=== PATIENT | female | born 1960 | race African-American/Black ===

== ENCOUNTER 2020-06-11 07:32 | Emergency (ER) | payer MEDICAID, OTHER ==
[~2020-06-11] VITALS: Ht 165.1 cm; Wt 63.5 kg
[2020-06-11 07:39] VITALS: BP 118/65
--- NOTE | 2020-06-11 07:43 | NUR ---
THE PATIENT IS IN ER BED #7 WITH C/O SINUS CONGESTION X 1 WEEK, STARTED COUGHING LAST NIGHT. THE PATIENT IS IN ROOM AIR AND DENIES SOB. RESPIRATION REGULAR AND UNLABORED. DENIES PAIN. WILL CONTINUE TO MONITOR THE PATIENT.
--- NOTE | 2020-06-11 07:44 | NUR ---
DR RAMIREZ AT THE BEDSIDE.
[2020-06-11] MEDS ORDERED: predniSONE 10 MG TABLET ONE (08:01)
[2020-06-11] MEDS ORDERED: AMOX-430 PO (08:01)
[2020-06-11] MEDS ORDERED: PRED50TA PO (08:01)
[2020-06-11] MEDS ORDERED: ALBU18HF2 INH (08:02)
[2020-06-11] MEDS ORDERED: predniSONE 20 MG TABLET ONE (08:02)
[2020-06-11] MEDS: predniSONE 50 MG TABLET PO ONE (08:13)
--- NOTE | 2020-06-11 08:24 | NUR ---
Patient discharged to home in stable condition. Written and verbal after care instructions given. Patient verbalizes understanding of instruction.
== END 2020-06-11 08:24 | disposition home or self-care (01) ==
LOC: ER 07:41
DX: J32.9 Chronic sinusitis, unspecified (principal); J22 Unspecified acute lower respiratory infection; J45.909 Unspecified asthma, uncomplicated; R00.0 Tachycardia, unspecified; Z79.899 Other long term (current) drug therapy
CPT/HCPCS: 71045; 99283; J7512 ×2

== ENCOUNTER 2020-06-24 21:58 | Emergency (ER) | payer MEDICAID ==
[~2020-06-24] VITALS: Ht 165.1 cm; Wt 63.5 kg
[~2020-06-24 21:58] MED LIST: ALBU18HF2 INH; AMOX-430 PO; PRED50TA PO
[2020-06-24 22:14] VITALS: BP 131/67
[2020-06-24] MEDS ORDERED: PROM118S5 PO (22:29)
[2020-06-24] MEDS ORDERED: ALBU18HF2 INH (22:29)
[2020-07-06] MEDS ORDERED: ALBU8.5H8 IH (02:15)
[2020-07-06] MEDS ORDERED: ALBU0.633 IH (02:15)
[2020-07-06] MEDS ORDERED: PRED20TA PO (02:15)
== END 2020-06-24 22:39 | disposition home or self-care (01) ==
LOC: ER 22:01
DX: J40 Bronchitis, not specified as acute or chronic (principal); R05 Cough; Z60.2 Problems related to living alone; Z79.899 Other long term (current) drug therapy

== ENCOUNTER 2020-08-30 22:16 | Emergency (ER) | payer MEDICAID ==
[~2020-08-30] VITALS: Ht 165.1 cm; Wt 63.5 kg
[~2020-08-30 22:16] MED LIST changes: +ALBU0.633 IH; +ALBU8.5H8 IH; +PRED20TA PO; +PROM118S5 PO
[2020-08-30] MEDS ORDERED: ALBUTEROL FS 2.5 MG/3 ML VIAL.NEB NEB ONE ×2 (22:30→23:00)
[2020-08-30] MEDS ORDERED: DEXAMETHASONE SOD PHOSPHATE 10 MG/ML VIAL IM ONE (22:30)
[2020-08-30] MEDS ORDERED: IPRATROPIUM NEB FS 0.5 MG/2.5 ML AMPUL.NEB NEB ONE ×2 (22:30→23:00)
[2020-08-30] MEDS ORDERED: DEXAMETHASONE SOD PHOSPHATE 10 MG/ML VIAL ONE (22:34)
[2020-08-30] MEDS ORDERED: IPRATROPIUM NEB FS 0.5 MG/2.5 ML AMPUL.NEB ONE ×2 (22:35→23:00)
[2020-08-30] MEDS ORDERED: ALBUTEROL FS 2.5 MG/3 ML VIAL.NEB ONE ×2 (22:35→23:00)
[2020-08-30] MEDS ORDERED: METH4TAB3 PO (23:33)
[2020-08-31 00:28] VITALS: BP 125/90
--- NOTE | 2020-08-31 00:28 | NUR ---
BIBS FOR, ASTHMA ATTACK, SOB AND COUGH FOR THE PAST FEW HOURS. INHALER'S NOT EFFECTIVE
== END 2020-08-31 00:28 | disposition home or self-care (01) ==
LOC: ER 22:17
DX: J98.01 Acute bronchospasm (principal); Z79.899 Other long term (current) drug therapy
CPT/HCPCS: 71045; 94640 ×2; 96372; 99284; J1100

== ENCOUNTER 2020-10-06 22:14 | Emergency (ER) | payer MEDICAID ==
[~2020-10-06] VITALS: Ht 162.6 cm; Wt 72.6 kg
[~2020-10-06 22:14] MED LIST changes: +METH4TAB3 PO
--- NOTE | 2020-10-06 22:14 | NUR ---
[id number] FROM HOME COUGH AND FEVER X 12HRS, UNVACCINATED, 88% ROOMAIR TEMP ON ARRIVAL 101.3, PT TO BED 5, AAOX4, PLACED ON MONITOR, NOT IN ACUTE DISTRESS, PT SPEAKING IN FULL SENTENCES. PT PLACED ON NC 2L. PENDING ER PROVIDER MAXIMINO
[2020-10-06] MEDS ORDERED: ACETAMINOPHEN ES 500 MG TABLET PO ONE (22:30)
--- NOTE | 2020-10-06 22:46 | NUR ---
MOVE SHEET SUBMITTED AND CALLED FOR TELE BED.
[2020-10-06 22:47] LABS: BASOPHILS % (AUTO) 0.4 % (0.0-2.0); HEMATOCRIT 42 % (33-45); HEMOGLOBIN 14.4 g/dL (11.5-14.8); LYMPHOCYTES # (AUTO) 0.8 K/uL (0.8-4.8); LYMPHOCYTES % (AUTO) 15.6 % (20.0-44.0); MEAN CORPUSCULAR HGB CONC 34 g/dl (31.0-36.0); MEAN CORPUSCULAR VOLUME 91 fL (82-100); MONOCYTES # (AUTO) 0.3 K/uL (0.1-1.30); MONOCYTES % (AUTO) 4.9 % (2.0-12.0); NEUTROPHILS # (AUTO) 4.2 K/uL (1.8-8.9); NEUTROPHILS % (AUTO) 79.1 % (43.0-81.0); PLATELET COUNT (AUTO) 123 K/uL (150-450); RED BLOOD CELL COUNT(AUTO) 4.61 MIL/uL (4.0-5.2); WHITE BLOOD COUNT (AUTO) 5.3 K/uL (4.3-11.0)
[2020-10-06 22:58] LABS: CALCIUM, SERUM 8.4 mg/dL (8.5-10.1); CARBON DIOXIDE 27 mmol/L (21-32); CHLORIDE 98 mmol/L (98-107); CREATININE 1.1 mg/dL (0.6-1.3); GLUCOSE 112 mg/dL (74-106); POTASSIUM 3.6 mmol/L (3.5-5.1); SODIUM SERUM 133 mmol/L (136-145); UREA NITROGEN, BLOOD 15 mg/dL (7-18)
[2020-10-06 23:10] LABS: ALANINE AMINOTRANSFERASE 16 U/L (12-78); ALBUMIN 3.4 g/dL (3.4-5.0); ALKALINE PHOSPHATASE 61 U/L (46-116); ASPARTATE AMINOTRANSFERASE 27 U/L (15-37); BILIRUBIN,DIRECT 0.1 mg/dL (0.0-0.2); BILIRUBIN,TOTAL 0.5 mg/dL (0.2-1.0); TOTAL PROTEIN, SERUM 7.4 g/dL (6.4-8.2)
--- NOTE | 2020-10-06 23:37 | NUR ---
covid swabs sent to lab
[2020-10-06] MEDS ORDERED: ACETAMINOPHEN ES 500 MG TABLET ONE (23:50)
[2020-10-07 00:09] LABS: BILIRUBIN,URINE SMALL (NEGATIVE); COLOR,URINE YELLOW (YELLOW); LEUKOCYTE ESTERASE ,URINE NEGATIVE (NEGATIVE); NITRITE, URINE NEGATIVE (NEGATIVE); PROTEIN,URINE 100 mg/dl (NEGATIVE); UGLUCOSE NEGATIVE (NEGATIVE)
--- NOTE | 2020-10-07 00:23 | NUR ---
LAB CALLED REGARDING POSITIVE COVID RESULT.
[2020-10-07 00:27] LABS: BACTERIA,URINE Few /HPF (None Seen); RBC,URINE 0-2 /HPF (0-2); SQUAMOUS EPITHELIAL CELL,UR Few /HPF (None Seen); WBC,URINE 0-2 /HPF (0-3)
--- NOTE | 2020-10-07 00:34 | NUR ---
LEIGHA VU TALKING TO CAPRI VALADEZ FOR PEER TO PEER.
[2020-10-07] MEDS ORDERED: methylPREDNISolone SOD SUCC 125 MG/2ML VIAL IV ONE (01:00)
--- NOTE | 2020-10-07 01:16 | NUR ---
OXYGEN RX FAXED TO [facility] ([facility]) @ REQUESTED.
[2020-10-07] MEDS ORDERED: methylPREDNISolone SOD SUCC 125 MG/2ML VIAL ONE (01:59)
[2020-10-07] MEDS ORDERED: PRED50TA PO (02:17)
--- NOTE | 2020-10-07 02:23 | NUR ---
SPOKE TO [facility] ([facility]) REGARDING OXYGEN DELIVERY SET-UP FOR PT IN A COUPLE OF HRS. PT MADE AWARE, PT MADE ARRANGEMENT FOR SOMEONE TO BE HOME TO RECEIVE DELIVERY.
--- NOTE | 2020-10-07 05:45 | NUR ---
CM CALLED, FAMILY WILL BE ABLE TO REC EQUIPMENT AT HOME; CALL MARGE (SON) [phone]
--- NOTE | 2020-10-07 06:10 | NUR ---
F/U WITH WIRE FENCE BUILDER RE: HOME O2. WILL CALL US BACK FOR UPDATE
--- NOTE | 2020-10-07 09:30 | NUR ---
WAD COMPRESSOR OPERATOR ADJUSTER CORTNEY FROM [facility] [phone] WILL CALL BACK TO INFORM ABOUT PROX DELIVERY TIME OF OXYGEN AND CONCENTRATOR
--- NOTE | 2020-10-07 09:52 | NUR ---
PER NICK BIRD, THE CONCENTRATOR AND THE OXYGEN TANK GOT DELIVERED TO THE HOUSE.
--- NOTE | 2020-10-07 10:24 | NUR ---
NICK BIRD WILL ASSOCIATE MEDICAL DIRECTOR THE PATIENT IN 15 MIN.
--- NOTE | 2020-10-07 11:03 | NUR ---
Patient discharged to home in stable condition. Written and verbal after care instructions given. Patient verbalizes understanding of instruction.
[2020-10-07 11:04] VITALS: BP 113/67
== END 2020-10-07 11:05 | disposition home or self-care (01) ==
LOC: ER 22:15
DX: U07.1 COVID-19 (principal); R09.02 Hypoxemia; J98.11 Atelectasis; R94.31 Abnormal electrocardiogram [ECG] [EKG]
CPT/HCPCS: 36415; 71045; 80048; 80076; 81001; 83605; 83880; 84484; 85025; 85730; 87040 ×2; 87081; 87086; 87426; 93005; 96374; 99285; C9803; J2930; U0003

== ENCOUNTER 2021-07-07 23:10 | Emergency (ER) | payer MEDICAID ==
[~2021-07-07] VITALS: Ht 165.1 cm; Wt 65.8 kg
--- NOTE | 2021-07-07 23:35 | NUR ---
PATIENT BIBS C/O SOB HAVING AN ASTHMA ATTACK. "RAN OUT OF INHALER". PATIENT PLACED ON BEDSIDE MONITOR, O2 SAT 97% ON ROOM AIR. PATIENT EXPRESSED DIFFICULTY BREATHING, SHALLOW BREATHING NOTED WITH RESPIRATORY RATE OF 25 BREATHS PER MINUTE. NONPRODUCTIVE COUGH NOTED. WILL CONTINUE TO MONITOR PATIENT.
[2021-07-07] MEDS ORDERED: DEXAMETHASONE SOD PHOSPHATE 10 MG/ML VIAL ONE (23:46)
[2021-07-07] MEDS: DEXAMETHASONE SOD PHOSPHATE 4 MG/ML VIAL IM ONE (23:50)
--- NOTE | 2021-07-08 00:01 | NUR ---
RT AT PT'S BEDSIDE
[2021-07-08] MEDS ORDERED: ALBUTEROL FS 2.5 MG/0.5 ML VIAL.NEB ONE (00:03)
[2021-07-08] MEDS ORDERED: IPRATROPIUM NEB FS 0.5 MG/2.5 ML AMPUL.NEB ONE (00:03)
[2021-07-08] MEDS: IPRATROPIUM NEB FS 0.5 MG/2.5 ML AMPUL.NEB NEB ONE (00:09)
[2021-07-08] MEDS: ALBUTEROL FS 2.5 MG/0.5 ML VIAL.NEB NEB ONE (00:09)
--- NOTE | 2021-07-08 01:04 | NUR ---
PT STATES FEELS BETTER AFTER BREATHING TX; DENIES SOB. SATTING 99% ON R/A
[2021-07-08] MEDS ORDERED: PRED50TA PO (01:28)
[2021-07-08] MEDS ORDERED: ALBU8.5H8 INH (01:28)
--- NOTE | 2021-07-08 01:32 | NUR ---
Patient discharged to home in stable condition. Written and verbal after care instructions given. Patient verbalizes understanding of instruction.
[2021-07-08 01:33] VITALS: BP 123/78
== END 2021-07-08 01:33 | disposition home or self-care (01) ==
LOC: ER 23:12
DX: J98.01 Acute bronchospasm (principal); Z79.899 Other long term (current) drug therapy
CPT/HCPCS: 71045; 94640; 96372; 99283; J1100